=== PATIENT | female | born 1955 | race Caucasian/White ===

== ENCOUNTER 2016-09-08 13:44 | Outpatient (RCR) | payer OTHER | END 2016-09-20 09:14 | disposition home or self-care (01) | LOC: WSOT 13:44 | DX: M79.645 Pain in left finger(s) (principal) ==

== ENCOUNTER → 2016-10-06 | Outpatient (CLI) | payer BC | LOC: MC.RAD 07:20 | DX: Z12.31 Encounter for screening mammogram for malignant neoplasm of breast (principal); R92.1 Mammographic calcification found on diagnostic imaging of breast ==

== ENCOUNTER → 2018-05-18 | Outpatient (CLI) | payer BC | LOC: MC.RAD 10:10 | DX: Z12.31 Encounter for screening mammogram for malignant neoplasm of breast (principal) ==

== ENCOUNTER → 2019-09-26 | Outpatient (CLI) | payer BC | LOC: MC.RAD 08-22 07:15 | DX: Z12.31 Encounter for screening mammogram for malignant neoplasm of breast (principal) ==

== ENCOUNTER → 2022-03-14 | Outpatient (CLI) | payer BC | LOC: MC.RAD 07:25 | DX: Z12.31 Encounter for screening mammogram for malignant neoplasm of breast (principal) ==

== ENCOUNTER → 2023-04-26 | Outpatient (CLI) | payer BC ==
[~2023-04-26] MED LIST: ASPIRIN E.C. 8181 MG PO; BYSTOLIC2.5 MG PO; LASIX 20MG TABL20 MG PO; PRILOSEC 20MG20 MG PO
== END ==
LOC: CANSCHCLI → MC.RAD 06:58
DX: Z12.31 Encounter for screening mammogram for malignant neoplasm of breast (principal); N64.89 Other specified disorders of breast